=== PATIENT | female | born 1965 | race Caucasian/White ===

== ENCOUNTER 2019-09-23 08:05 | Emergency (ER) | payer SELFPAY ==
[~2019-09-23] VITALS: Ht 162.6 cm; Wt 65.5 kg
[2019-09-23 08:06] VITALS: Ht 162.6 cm; Wt 65.5 kg
[2019-09-23] MEDS ORDERED: EPIPEN 2-P0.3 MG/0.3 IM (08:08)
[2019-09-23] MEDS ORDERED: VISTARIL25 MG PO (08:08)
[2019-09-23] MEDS ORDERED: ZOFRAN4 MG PO (08:09)
[2019-09-23] MEDS ORDERED: PHENERGAN25 M1 PO (08:09)
[2019-09-23] MEDS ORDERED: CATAPRES0.1 MG PO (08:10)
[2019-09-23] MEDS ORDERED: BACLOFEN10 MG PO (08:10)
[2019-09-23] MEDS ORDERED: NAPROSYN500 MG PO (08:11)
[2019-09-23 08:22] LABS: BASOPHILS 0.2 % (0-2); EOSINOPHILS 0.3 % (0-7); HEMATOCRIT 45.2 % (36.0-48.0); HEMOGLOBIN 15.1 g/dL (12-16); IMMATURE GRANULOCYTES 0.2 % (0-5); LYMPHOCYTES 22.4 % (15-50); MCH 33.6 pg (26.0-34.0); MCHC 33.4 g/dL (31.0-37.0); MCV 100.7 fL (80.0-100.0); MEAN PLATELET VOLUME 10.5 fL (7.4-10.4); MONOCYTES 9.9 % (2-11); PLATELET COUNT 318 10x3/uL (130-400); RBC 4.49 10x6/uL (4.00-5.40); RDW 12.3 % (11.5-14.5); WBC 8.7 10x3/uL (4.8-10.8)
[2019-09-23 08:32] LABS: ANION GAP 15.6 mmol/L (8-16); CALCIUM 9.7 mg/dL (8.5-10.1); CARBON DIOXIDE 31.6 mmol/L (21.0-32.0); CREATININE - SERUM 0.9 mg/dL (0.6-1.3); POTASSIUM - SERUM 3.2 mmol/L (3.5-5.1)
[2019-09-23 08:47] LABS: ALBUMIN 4.7 g/dL (3.4-5.0); BILIRUBIN - TOTAL 1.13 mg/dL (0.2-1.3); PROTEIN - SERUM 8.4 g/dL (6.4-8.2); THYROID STIMULATING HORMONE 0.87 uIU/mL (0.36-3.74)
[2019-09-23 09:26] LABS: APPEARANCE CLEAR (CLEAR); BILIRUBIN NEGATIVE (NEGATIVE); COLOR YELLOW (YELLOW); GLUCOSE NEGATIVE (NEGATIVE); NITRITE NEGATIVE (NEGATIVE); PROTEIN NEGATIVE (NEGATIVE); UROBILINOGEN NORMAL (NORMAL)
[2019-09-23 09:28] LABS: KETONE LARGE mg/dL (NEGATIVE)
[2019-09-23] MEDS ORDERED: ZOFRAN ODT4 MG/UDTAB PO (11:06)
[2019-09-23] MEDS ORDERED: IMODIUM2 MG PO (11:06)
[2019-09-23 11:34] VITALS: BP 161/101
== END 2019-09-23 12:21 | disposition home or self-care (01) ==
LOC: D.ER 08:05
PROVIDERS: Family Medicine
DX: F11.23 Opioid dependence with withdrawal (principal); K52.9 Noninfective gastroenteritis and colitis, unspecified